=== PATIENT | female | born 1995 | race Two or more races ===

== ENCOUNTER 2024-06-01 17:39 | Emergency (ER) | payer BC, SELFPAY ==
[2024-06-01 18:41] VITALS: BP 124/80; PULSE 88; RESP 18; TEMP 36.6; O2SAT 99; BMI 27.4
--- NOTE | 2024-06-01 18:44 | PD.EDADULT ---
ED General RME/HPI General Chief complaint: General Adult/Misc Complain Stated complaint: SENT FROM OUTPT ULTRASOUND Time Seen by Provider: 06/01/24 18:10 Arrival date/time: 06/01/24 17:39 RME / HPI RME / HPI narrative: This section includes all my notes and documentations, including HPI, PE, and ED course. Camilo Saavedra MD HPI: 29-year-old female here requesting OB ultrasound report from today. The ultrasound was performed a couple hours ago across the street. She is currently . Today's GA is 7 weeks based on LMP 04/20/2024. She has slight cramping. No bleeding. She is concerned because she had ectopic in the past. No other complaints. ROS: All negative except as documented in HPI. Physical Exam: General: Alert and oriented. No acute distress when remaining still. Eyes: Conjunctivae and lids clear. ENT: No nasal congestion. Neck: Supple. Heart: RRR. Lungs: No respiratory distress. Good air movement. No rhonchi, wheezing, rales. Abdomen: Soft and nontender. Legs: No clubbing, cyanosis, edema. Skin: Warm and dry. Neuro: Alert and oriented X 3. I reviewed all diagnostic test results. My review of the OB ultrasound report is no ectopic . At this point, diagnoses include threatened miscarriage. Recommended expectant management. Based on my best medical judgment, made decision no further evaluation or treatment indicated at this time. Patient understands and agrees to the discharge instructions customized and printed, see below. Discharge Instructions from Dr. Saavedra: 1. After evaluation, there is no ectopic on ultrasound. But we can't see the baby, probably too early. 2. Today, your GA is 7 weeks based on LMP 04/20/2024. 3. Only time will determine whether you will have a successful or you will have a miscarriage. If you have a miscarriage, unfortunately we won?t be able to save the baby because it?s too early. Under 20 weeks, unfortunately we can?t help. 4. See a private doctor on 06/04/2024 for recheck and further care. Ask for repeat ultrasound in 1 to 2 weeks. 5. Seek immediate medical care for severe bleeding (soaking more than 3 pads per hour), intolerable pain, or with any concerns. Camilo Saavedra MD Related Data Previous Rx's ?Medication ?Instructions ?Recorded epinephrine 0.3 mg/0.3 mL 0.3 ml subcut .x1 PRN 11/08/20 injection, auto-injector (EpiPen hypersensitivity reaction #2 ea 2-Cosme) famotidine 40 mg tablet (Pepcid) 40 mg PO QDAY #3 tabs 11/08/20 prednisone 50 mg tablet 50 mg PO QDAY allergic reaction #3 11/08/20 tabs IBU 800 mg tablet (ibuprofen) 800 mg PO Q6H PRN pain #30 tabs 01/29/21 hydrocodone 5 mg-acetaminophen 325 1 tab PO Q8H PRN pain #10 tabs 01/29/21 mg tablet Allergies Allergy/AdvReac Type Severity Reaction Status Date / Time No Known Allergies Allergy Verified 06/01/24 17:41 Review of Systems Review of Systems Systems Reviewed: All systems reviewed, normal except as documented Past Medical History Past Medical History CARDIAC: Negative Congestive Heart Failure RESPIRATORY: Negative Chronic Obstructive Pulmonary Disease (COPD) GENITOURINARY: Negative Renal Disease ENDOCRINE: Negative Diabetes Mellitus Type 1 or Diabetes Mellitus Type 2 Social History SMOKING STATUS: Never smoker ED Exam Narrative Physical exam: As noted in HPI. Course Quality Measures none Vital Signs Vital signs: Vital Signs Temperature 98 F 06/01/24 18:41 Pulse Rate 88 06/01/24 18:41 Respiratory Rate 18 06/01/24 18:41 Blood Pressure 124/80 06/01/24 18:41 Pulse Oximetry (%) 99 06/01/24 18:41 Oxygen Delivery Method Room Air 06/01/24 18:41 [facility] Patient data External records reviewed:: [facility] previous records (Per chart review, patient was seen here on 01/29/21 for a left knee effusion; Patient had an outpatient US done today, currently pending being read by radiology.) Clinical information provided by:: patient Social determinants that could affect healthcare access:: none Patient has the following chronic illnesses:: none How is presenting disease/condition affected by chronic disease/condition?: no chronic disease Evaluation data The following diagnostics were reviewed and interpreted by me:: radiology exam(s) Lab and/or radiology exams considered but not ordered:: none Interpretation Summary: No ectopic Medications Medications considered but not ordered:: none Medication administrations:: None Consultations Consultation(s) initiated? (list below): No Diagnosis Differential Diagnosis ED Complaint MDM: IUP, ectopic, threatened AB, incomplete AB Most likely diagnosis given after review of the tests above:: Threatened AB Admission Indicated Admission indicated?: not indicated Explain why admission is indicated or not indicated:: Admission criteria not met. Admission Request Was there a request for admission?: No Disposition Plan Disposition Plan: Discharge Discharge Attestation Discharge Attestation: The patient and all family members were given an opportunity to ask questions and understood the discharge instructions. Discharge instructions specifically effects, indications for sooner follow up or return to the emergency department, and the expected course of current diagnosis. Patient condition: Stable Medical Decision Making Differential Diagnosis Differential Diagnosis: IUP, ectopic, threatened AB, incomplete AB Discharge Plan Plan Patient Disposition: HOME (Self Care) Prescriptions/Referrals Prescriptions/Med Rec: No Action famotidine [Pepcid] 40 mg tablet 40 mg PO QDAY Qty: 3 0RF prednisone 50 mg tablet 50 mg PO QDAY Qty: 3 0RF epinephrine [EpiPen 2-Cosme] 0.3 mg/0.3 mL auto-injector 0.3 ml subcut .x1 PRN (Reason: hypersensitivity reaction) Qty: 2 0RF ibuprofen [IBU] 800 mg tablet 800 mg PO Q6H PRN (Reason: pain) Qty: 30 0RF hydrocodone-acetaminophen 5-325 mg tablet 1 tab PO Q8H MDD 3 a day PRN (Reason: pain) Qty: 10 0RF Referrals: No Primary/Family,Physician [Primary Care Provider] - In 1 week Problem List Clinical Impression: Threatened miscarriage Patient/Caregiver Discharge Instructions Education Materials: ED Possible Miscarriage ... Additional Instructions: Discharge Instructions from Dr. Saavedra: 1.? ? ? After evaluation, there is no ectopic on ultrasound. But we can't see the baby, probably too early. 2.? ? ? Today, your GA is 7 weeks based on LMP 04/20/2024. 3.? ? ? Only time will determine whether you will have a successful or you will have a miscarriage.? If you have a miscarriage, unfortunately we won?t be able to save the baby because it?s too early.? Under 20 weeks, unfortunately we can?t help.?? 4.? ? ? See a private doctor on 06/04/2024 for recheck and further care. Ask for repeat ultrasound in 1 to 2 weeks. 5.? ? ? Seek immediate medical care for severe bleeding (soaking more than 3 pads per hour), intolerable pain, or with any concerns.? Print Language: Kosovan Stand Alone Forms: Susanna Award Info., Patient Portal Info Letter
--- NOTE | 2024-06-01 21:08 | PC.NURSE ---
PATIENT ELOPED THE ER DUE TO THE LONG WAIT TIME.
== END 2024-06-01 21:28 | disposition home or self-care (01) ==
PROVIDERS: Emergency Provider Emergency Medicine
DX: O20.0 Threatened abortion (principal); Z3A.01 Less than 8 weeks gestation of pregnancy
CPT/HCPCS: 99281

== ENCOUNTER → 2024-06-01 | Outpatient (CLI) | payer BC, SELFPAY ==
--- NOTE | 2024-06-01 16:53 | XR_ITS ---
Examination: OB Transvaginal ultrasound of the pelvis, complete Technique: Transvaginal sonographic images pelvis performed using bowen scale imaging Exam date and time: June 01, 2024 1700 hrs. Indications: Onset pelvic pain today, history left adnexal ectopic March 2023 Findings: Uterus 4.2 x 6.2 x 6.4 cm retroverted Intrauterine gestations 0.2 cm corresponds to 5 weeks 5 days gestational age No cardiac motion Right ovary 3.4 x 2.2 x 3.4 cm arterial flow, adjacent to the right ovary complex mass with fluid measuring 2.4 x 2.3 x 2.3 cm, differential would include ectopic Document ovary 3.0 x 1.8 x 1.6 cm arterial flow Fluid in the cul-de-sac Impression: Intrauterine gestation with pole but no cardiac activity Right ovarian complex mass with fluid measuring 2.4 x 2.3 x 2.3 cm, differential would include ectopic Short-term follow-up transvaginal pelvic sonography strongly recommended
--- NOTE | 2024-06-01 21:24 | PRELIM_ITS ---
Obstetric ultrasound (transvaginal). June 01, 2024 1700 hours Clinical history: state, hx of ectopic Comparison: NoneFindings: There is an intrauterine gestational sac with a sin gle fetus of mean gestational age 5 weeks and 5 days (CRL= 0.21 cm). The gestational sac appears to b e located in the right aspect of the uterine body of a subseptate or arcuate uterus. No cardiac activity is present at this time. The yolk sac is demonstrated. The uterus measures 8.2 x 6.2 x 6.4 cm and retroverted. The right ovary measures 3.3 x 2.2 x 3.3 cm. There is a 2.4 x 2.3 x 2.3 cm thick walled cystic lesion with peripheral vascularity in the right adnexa, likely a corpus luteum. The lef t ovary measures 3 x 1.8 x 1.5 cm and is unremarkable. Both ovaries demonstrate color flow and spectr al waveforms on Doppler evaluation. There is small free fluid in the pelvis. Impression: Intrauterine gestational sac with a single fetus of mean gestational age 5 weeks and 5 days. Gestational sac appe ars to be located in the right aspect of the uterine body of a subseptate or arcuate uterus. No cardiac activity identified at this time. This may be related to the early stage of gestation. Recom mend follow up for viability.Findings suggestive of corpus luteal cyst with rupture and small free fl uid in the pelvis.Discussion Details: Results Discussed With : Dr. Saavedra at 09:13 PM 06/01/2024 Repor t Electronically Signed By: Betty Juarez 06/01/2024 9:23:11 PM [EST]
== END | disposition home or self-care (01) ==
PROVIDERS: PCP Nurse Practitioner Family; Referring Provider Specialist; Visit Provider Nurse Practitioner Family
DX: O26.90 Pregnancy related conditions, unspecified, unspecified trimester (principal); Z3A.01 Less than 8 weeks gestation of pregnancy; Z87.59 Personal history of other complications of pregnancy, childbirth and the puerperium; Z34.90 Encounter for supervision of normal pregnancy, unspecified, unspecified trimester
CPT/HCPCS: 76817

== ENCOUNTER 2024-06-23 08:40 | Emergency (ER) | payer BC, SELFPAY ==
[2024-06-23 08:41] VITALS: BMI 26.6
[2024-06-23 08:55] VITALS: BP 113/79; PULSE 79; RESP 18; TEMP 36.7; O2SAT 100
--- NOTE | 2024-06-23 08:56 | XR_ITS ---
Examination: Complete OB ultrasound, less than 14 weeks, transabdominal Date and time of exam: June 23, 2024 0935 hours INDICATIONS: Onset vaginal bleeding today, history ectopic Technique: Obstetrical ultrasound images less than 14 weeks performed via transabdominal imaging Findings: A normal shaped single intrauterine gestation is present in the uterus. pole 2.4 cm corresponds to 9 weeks 1 day gestational age Cardiac motion 169 bpm Ultrasonographic survey of visible and placental structures unremarkable. Amniotic fluid volume appears appropriate for this estimated gestational age. Right ovary 3.0 x 2.1 x 2.8 cm arterial flow Left ovary 3.4 x 1.0 x 2.0 cm arterial flow. IMPRESSION: Viable intrauterine gestation 9 weeks 1 day
--- NOTE | 2024-06-23 09:11 | EDNOTE_ITS ---
<Statement entered by Myrtle Mathew MD - 06/25/24 15:28> As co-signing physician, I was present and available for consult prn. I concur with the plan and care as documented by the midlevel provider. ED OB Contraction Preg RMI/HPI General Chief complaint: Vaginal Bleeding Stated complaint: VAG BLEEDING AND ABOUT 9 WKS PREG. Time Seen by Provider: 06/23/24 08:46 Arrival date/time: 06/23/24 08:40 29-year-old female G2, presents to the emergency department complaints of vaginal bleeding after intercourse this morning patient reports no fever nausea or vomiting no chest pain shortness of breath no dysuria polyuria Limitations: no limitations Related Data Previous Rx's ?Medication ?Instructions ?Recorded epinephrine 0.3 mg/0.3 mL 0.3 ml subcut .x1 PRN 11/08/20 injection, auto-injector (EpiPen hypersensitivity reaction #2 ea 2-Cosme) famotidine 40 mg tablet (Pepcid) 40 mg PO QDAY #3 tabs 11/08/20 prednisone 50 mg tablet 50 mg PO QDAY allergic reaction #3 11/08/20 tabs IBU 800 mg tablet (ibuprofen) 800 mg PO Q6H PRN pain #30 tabs 01/29/21 hydrocodone 5 mg-acetaminophen 325 1 tab PO Q8H PRN pain #10 tabs 01/29/21 mg tablet Allergies Allergy/AdvReac Type Severity Reaction Status Date / Time No Known Allergies Allergy Verified 06/23/24 08:44 Review of Systems Review of Systems Systems Reviewed: All systems reviewed, normal except as documented Constitutional Constitutional: Reports system reviewed and no additional complaints, except as documented, Denies fever(s) and Denies headache(s) Eyes Eyes: Reports system reviewed and no additional complaints, except as documented and Denies blurry vision ENT Ears, Nose, Mouth, and Throat: Reports system reviewed and no additional complaints, except as documented, Denies headache(s), Denies nasal congestion and Denies nasal discharge Cardiovascular Cardiovascular: Reports system reviewed and no additional complaints, except as documented, Denies chest pain and Denies dyspnea Respiratory Respiratory: Reports system reviewed and no additional complaints, except as documented, Denies chest congestion, Denies cough and Denies dyspnea Gastrointestinal Gastrointestinal: Reports system reviewed and no additional complaints, except as documented and Denies abdominal pain Genitourinary Genitourinary: Reports system reviewed and no additional complaints, except as documented and Reports abnormal vaginal bleeding Integumentary/Breasts Skin/Breast: Reports system reviewed and no additional complaints, except as documented and Denies rash Neurologic Neurologic: Reports system reviewed and no additional complaints, except as documented, Reports as per HPI and Denies headache(s) Past Medical History Past Medical History CARDIAC: Negative Congestive Heart Failure RESPIRATORY: Negative Chronic Obstructive Pulmonary Disease (COPD) GENITOURINARY: Negative Renal Disease ENDOCRINE: Negative Diabetes Mellitus Type 1 or Diabetes Mellitus Type 2 Social History SMOKING STATUS: Never smoker ED Exam General Limitations: Present no limitations General appearance: Present alert and in no apparent distress Head Head exam: Present atraumatic Eye Eye exam: Present normal appearance, PERRL and EOMI ENT ENT exam: Present normal exam, normal oropharynx and mucous membranes moist Neck Neck exam: Present normal inspection, full ROM and trachea midline Chest Chest inspection: Present normal inspection and symmetric chest wall rise Respiratory Respiratory exam: Present normal lung sounds bilaterally Cardiovascular Cardiovascular exam: Present regular rate, normal rhythm and normal heart sounds Abdominal Exam Abdominal exam: Present soft and normal bowel sounds; Absent distention, tenderness, guarding, rebound or rigidity Extremities Exam Extremities exam: Present normal inspection and full ROM Back Exam Back exam: Present normal inspection and full ROM Neurological Exam Neurological exam: Present alert, oriented X3 and CN II-XII intact Psychiatric Psychiatric exam: Present normal affect and normal mood Skin Skin exam: Present warm, dry, intact and normal color Course Quality Measures none Orders Category Date Time Status US OB <= 14 weeks fetus Stat Exams 06/23/24 08:56 Completed ABO/RH Type Stat Lab 06/23/24 10:12 Completed Beta HCG,Quantitative Stat Lab 06/23/24 10:12 Completed CBC Stat Lab 06/23/24 10:12 Completed Comprehensive Metabolic Panel Stat Lab 06/23/24 10:12 Completed Vital Signs Vital signs: Vital Signs Temperature 98.0 F 06/23/24 08:55 Pulse Rate 79 06/23/24 08:55 Respiratory Rate 18 06/23/24 08:55 Blood Pressure 113/79 06/23/24 08:55 Pulse Oximetry (%) 100 06/23/24 08:55 Oxygen Delivery Method Room Air 06/23/24 08:55 O2 saturation 100% on room air within normal limits Vaginal Bleeding MDM Narrative MDM Narrative: 29-year-old female G2, presents to the emergency department complaints of vaginal bleeding after intercourse this morning patient reports no fever nausea or vomiting no chest pain shortness of breath no dysuria polyuria On exam patient does not appear ill or toxic patient does not appear in acute distress patient hemodynamically stable Lab work and ultrasound obtained ultrasound consistent with viable lab work reassuring Patient discharged home in no distress to follow-up with MECHANICAL SYSTEM TECHNICIAN in the next 24 to 48 hours and for any worsening symptoms to return to the ER immediately Patient data External records reviewed:: [facility] previous records Clinical information provided by:: patient Social determinants that could affect healthcare access:: none Patient has the following chronic illnesses:: None How is presenting disease/condition affected by chronic disease/condition?: no chronic disease Evaluation data The following diagnostics were reviewed and interpreted by me:: lab results and radiology exam(s) Lab and/or radiology exams considered but not ordered:: Labs and radiology obtained Interpretation Summary: Reviewed by me Medications / Prescriptions Medications or Prescriptions considered but not ordered:: Given Medication administrations:: Given Consultations Consultation(s) initiated? (list below): No Diagnosis Vaginal Bleeding Differential Diagnosis: missed , threatened and dysfunctional uterine bleeding Most likely diagnosis given after review of the tests above:: Threatened Admission Indicated Admission indicated?: not indicated Admission Request Was there a request for admission?: No Disposition Plan Disposition Plan: Discharge Discharge Attestation Discharge Attestation: The patient and all family members were given an opportunity to ask questions and understood the discharge instructions. Discharge instructions specifically effects, indications for sooner follow up or return to the emergency department, and the expected course of current diagnosis. Patient condition: Stable Discharge Plan Plan Patient Disposition: HOME (Self Care) Disposition Comment: Stable Prescriptions/Referrals Prescriptions/Med Rec: No Action famotidine [Pepcid] 40 mg tablet 40 mg PO QDAY Qty: 3 0RF prednisone 50 mg tablet 50 mg PO QDAY Qty: 3 0RF epinephrine [EpiPen 2-Cosme] 0.3 mg/0.3 mL auto-injector 0.3 ml subcut .x1 PRN (Reason: hypersensitivity reaction) Qty: 2 0RF ibuprofen [IBU] 800 mg tablet 800 mg PO Q6H PRN (Reason: pain) Qty: 30 0RF hydrocodone-acetaminophen 5-325 mg tablet 1 tab PO Q8H MDD 3 a day PRN (Reason: pain) Qty: 10 0RF Referrals: No Primary/Family,Physician [Primary Care Provider] - 06/24/24 Problem List Clinical Impression: Bleeding in early Patient/Caregiver Discharge Instructions Education Materials: Bleeding During Early Additional Instructions: Please follow-up with MECHANICAL SYSTEM TECHNICIAN as discussed for worsening symptoms return immediately Print Language: German Stand Alone Forms: Susanna Award Info., Work/School Release, Patient Portal Info Letter PA/BRINE MIXER OPERATOR Supervising Physician PA/BRINE MIXER OPERATOR Supervising Physician: Dr. Mathew
[2024-06-23 10:24] LABS: Basophils % (Auto) 1 % (0-2.5); Eosinophils % (Auto) 1 % (0-10); Hematocrit 38.2 % (36.0-46.0); Hemoglobin 12.8 g/dL (12.0-16.0); Immature Granulocytes % (Auto) 0 % (0-0); Immature Granulocytes Auto 0.01 Thou/mm3 (0.00-0.00); Lymphocytes # (Auto) 1.6 Thou/mm3 (1.0-4.8); Lymphocytes % (Auto) 19 % (10-50); Mean Corpuscular HGB Conc 33.5 g/dl (31.0-37.0); Mean Corpuscular Hemoglobin 28.5 pg (25.0-35.0); Mean Corpuscular Volume 85 fL (80-100); Monocytes # (Auto) 0.5 Thou/mm3 (0.0-0.8); Monocytes % (Auto) 6 % (0-12); Neutrophils # (Auto) 6.2 Thou/mm3 (1.8-7.7); Neutrophils % (Auto) 74 % (37-80); Nucleated Red Blood Cell % 0 /100 WBC (0); Platelet Count 284 Thou/mm3 (140-440); RDW Standard Deviation 39.8 fL (36.4-46.3); Red Blood Count 4.49 Miln/mm3 (4.00-5.20); White Blood Count 8.4 Thou/mm3 (3.6-11.0)
[2024-06-23 11:09] LABS: Alanine Aminotransferase < 7 U/L (10-49); Albumin, Serum 4.7 gm/dL (3.5-5.0); Albumin/Globulin Ratio 1.7 (1.2-2.2); Alkaline Phosphatase 50 U/L (46-116); Anion Gap 8 (7-16); Aspartate Amino Transferase < 10 U/L (0-34); BUN/Creatinine Ratio 10 Ratio (12-20); Bilirubin,Total 0.3 mg/dL (0.3-1.2); Blood Urea Nitrogen 5 mg/dL (9-23); Calcium 9.5 mg/dL (8.3-10.6); Calcium (Corrected) 9.5 mg/dL (8.5-10.1); Carbon Dioxide 24.4 mMol/L (20.0-31.0); Chloride 103 mMol/L (98-107); Creatinine (Component) 0.5 mg/dL (0.6-1.3); Estimated Creatinine Clearance 165.7 mL/min (>60); Globulin 2.8 gm/dL (2.3-3.5); Glucose 87 mg/dL (74-106); Osmolality,Calculated 266 (275-295); Sodium 135 mMol/L (136-145); Total Protein 7.5 gm/dL (5.7-8.2); eGFR > 60 See Note
[2024-06-23 11:21] LABS: Beta HCG,Quantitative 96045 mIU/mL (<5.0)
== END 2024-06-23 12:00 | disposition home or self-care (01) ==
PROVIDERS: Nurse Practitioner Primary Care; Emergency Provider Emergency Medicine
DX: O20.0 Threatened abortion (principal); Z3A.09 9 weeks gestation of pregnancy
CPT/HCPCS: 36415; 76801; 80053; 84702; 85025; 86900; 86901; 99284

== ENCOUNTER → 2024-08-06 | Outpatient (CLI) | payer BC, SELFPAY ==
--- NOTE | 2024-08-06 11:02 | XR_ITS ---
Examination: PA chest lateral 2 views Technique: Upright PA lateral chest 2 views Exam date and time: August 06, 2024 1112 hrs. Indications: Positive TB skin test this week Findings: Normal heart size Lungs are clear. The osseous structures are intact Impression: No active disease No radiographic findings of tuberculosis
== END | disposition home or self-care (01) ==
PROVIDERS: Referring Provider Specialist; Visit Provider Specialist
DX: R76.11 Nonspecific reaction to tuberculin skin test without active tuberculosis (principal); Z34.81 Encounter for supervision of other normal pregnancy, first trimester
CPT/HCPCS: 71046

== ENCOUNTER 2025-01-19 02:36 | Observation (INO) | payer BC, SELFPAY ==
[2025-01-19] VITALS (12 sets, daily range): BP systolic 101–137; BP diastolic 53–85; PULSE 65–84; RESP 18–98; TEMP 36.6–36.8; O2SAT 97–99; BMI 31.1
--- NOTE | 2025-01-19 03:29 | XR_ITS ---
Examination: Complete OB ultrasound greater than 14 weeks Date and time of exam: January 19, 2025, 0337 hours INDICATIONS: Labor evaluation, pelvic contractions beginning 2 days ago, history when ectopic Findings: Viable intrauterine single fetus with single amniotic sac presentation cephalic Cardiac motion 125 BPM Placenta fundal grade 2 Umbilical cord insertion seen. Amniotic fluid index 7.9 cm. Cervix 3.5 cm Ovaries obscured by bowel gas. Composite estimated gestational age based on BPD, head circumference, abdominal circumference, femur length is 40 weeks 1 day Estimated weight 4087.7 g. Survey of intracranial anatomy, spinal anatomy, abdominal anatomy, four-chamber heart performed with no abnormalities identified. Impression: Viable intrauterine gestation cephalic presentation Estimated weight 4087.7 g.
[2025-01-19 03:32] LABS: Basophils # (Auto) 0.0 Thou/mm3 (0.0-0.2); Basophils % (Auto) 0 % (0-2.5); Eosinophils # (Auto) 0.1 Thou/mm3 (0.0-0.5); Eosinophils % (Auto) 1 % (0-10); Hematocrit 39.8 % (36.0-46.0); Hemoglobin 13.4 g/dL (12.0-16.0); Immature Granulocytes Auto 0.05 Thou/mm3 (0.00-0.00); Lymphocytes # (Auto) 2.6 Thou/mm3 (1.0-4.8); Lymphocytes % (Auto) 24 % (10-50); Mean Corpuscular HGB Conc 33.7 g/dl (31.0-37.0); Mean Corpuscular Hemoglobin 29.0 pg (25.0-35.0); Mean Corpuscular Volume 86 fL (80-100); Monocytes # (Auto) 0.7 Thou/mm3 (0.0-0.8); Monocytes % (Auto) 7 % (0-12); Neutrophils # (Auto) 7.3 Thou/mm3 (1.8-7.7); Neutrophils % (Auto) 68 % (37-80); Nucleated Red Blood Cell # 0.00 Thou/mm3 (0.00-0.00); Nucleated Red Blood Cell % 0 /100 WBC (0); Platelet Count 221 Thou/mm3 (140-440); RDW Standard Deviation 40.2 fL (36.4-46.3); Red Blood Count 4.62 Miln/mm3 (4.00-5.20); White Blood Count 10.8 Thou/mm3 (3.6-11.0)
[2025-01-19 04:05] LABS: Syphilis Nonreactive (Nonreactive)
[2025-01-19] MEDS: RINGERS LACTATED 1000 ML 1,000 ML 100 ML IV (04:14)
--- NOTE | 2025-01-19 04:50 | PRELIM_ITS ---
Obstetric ultrasound with Doppler. January 19, 2025 at 0337 hours Clinical history: Contractions. Comparison: No prior study is available for comparison. Findings: There is a gravid uterus with a live fetus in cephalic presentation of mean gestational age 40 weeks and 1 days (by biometry). cardiac activity is present at a heart rate of 125 beats per minute. The placenta is fundal in location, maturity grade 2. There is no evidence of placenta previa or retroplacental hemorrhage. Amniotic fluid is adequate (RADHA = 7.9 cm). Estimated weight is 4088 grams+/- 605 grams. The cervix measures 3.5 cm, close. The ovaries were not visualized. No abnormalities by Doppler. Impression: Gravid uterus with a single live fetus in cephalic presentation of mean gestational age 40 weeks 1 days. Report Electronically Signed By: Bebeto Handley 01/19/2025 4:49:48 AM [EST]
--- NOTE | 2025-01-19 07:13 | PC.NURSE ---
[id number] RN evaluated and agrees with RN Sylvia charting
--- NOTE | 2025-01-19 08:39 | PD.LDHP ---
Documentation for date of: 01/19/25 OB Labor/Induct. HPI History of Present Illness Chief complaint: labor : 2 Para: 0 Term pregnancies: 0 pregnancies: 0 Living children: 0 History of Abortions: Spontaneous and Elective: 1 History of Vaginal deliveries: 0 History of sections: No History of : No Date of last menstrual period: 04/19/24 ADRIANO: 01/24/25 Gestational Age (weeks): 39 Gestational Age (days): 2 Gestational age based on last menstrual period: 39 History of present illness: This is a 29-year-old 2 para 0 admit to labor and delivery contractions since 1:30 in the morning. Patient is been followed by Dr Lynn's office. She had early care. Last period April 19, 2024. Estimated due date January 24, 2025. Patient denies social habits. Denies surgery. Denies chronic illness. She denies that she has had problems with . She is O+, antibody screen negative, RPR nonreactive, rubella immune, hepatitis B negative, hepatitis C negative, HIV negative, GC and Chlamydia were negative. Patient had a normal 1 hour GTT and her GBS is negative History of Present Dating criteria: LMP confirmed by 1st trimester US Adequate Care: Yes Ultrasounds: normal 1st trimester US and normal mid trimester US Obstetrical complications: none Medical complications: none Labs Labs: Positive: Rubella Titre, Negative: RPR, Hepatitis B, HIV, Chlamydia, Gonorrhea and Group Beta Strep and Unknown: Herpes Type 1, Herpes Type 2 and Covid-19 Review of Systems Review of Systems Systems Reviewed: All systems reviewed, normal except as documented Past Medical History Surgical History SURGICAL: Negative Section Meds Home Medications and Allergies Home Medications ?Medication ?Instructions ?Recorded ?Confirmed ?Type vits no.126-ferrous fum 1 tab PO .q day 01/19/25 01/19/25 History 28 mg iron-folic acid 800 mcg tablet (Classic ) Allergies Allergy/AdvReac Type Severity Reaction Status Date / Time No Known Allergies Allergy Verified 01/19/25 03:00 OB Exam Physical Exam Vital signs: Temp Pulse Resp BP Pulse Ox 97.8 F 65 18 118/60 99 01/19/25 02:47 01/19/25 06:45 01/19/25 02:47 01/19/25 06:45 01/19/25 03:01 Narrative: Normal heart rate and rhythm. Lungs clear no wheezes. Gravid abdomen. Gynecoid pelvis. Patient had ultrasound on admission that showed vertex presentation. EFW was 4100 g. By Kendell's baby feels about 8 pounds. heart rate category 1 with accelerations and moderate variability contractions are regular. Bag carlton intact Detailed Labor and Delivery Exam Dilation (cm): 3 Effacement (%): 60 Cervix position: posterior station: -3 Consistency: soft Presentation: Vertex Cervical ripeness score: 7 Membranes: intact monitor accelerations: 15x15 monitor decelerations: None correction variability: Moderate (11-25) Contraction frequency (min): irregular Contraction duration (sec): 30 Tachysystole: No Contraction intensity: Moderate OB Results Labs 01/19/25 03:10 Labs: Short CBC 01/19/25 Range/Units 03:10 WBC 10.8 (3.6-11.0) Thou/mm3 Hgb 13.4 (12.0-16.0) g/dL Hct 39.8 (36.0-46.0) % Plt Count 221 (140-440) Thou/mm3 OB Assessment & Plan Assessment and Plan (1) Normal labor and delivery: Status: Acute Additional Plan Induction method: none Plan: augmentation, anticipate NVD and consult MD gonzalez
--- NOTE | 2025-01-19 12:03 | ESDS_ITS ---
DS: Providers Provider Date of admission: 01/19/25 03:10 Primary care physician: Physician No Primary/Family Admitting Provider: Verona Clinton MD ([facility]) Attending Provider on Admission: Indiana Santana CNM Attending Provider on DC: Indiana Santana CNM Discharging Provider: Indiana Santana CNM Summary/Hosp Course Brief History: This is a 29-year-old 2 para 0 admit to labor and delivery contractions since 1:30 in the morning. Patient is been followed by Dr Lynn's office. She had early care. Last period April 19, 2024. Estimated due date January 24, 2025. Patient denies social habits. Denies surgery. Denies chronic illness. She denies that she has had problems with . She is O+, antibody screen negative, RPR nonreactive, rubella immune, hepatitis B negative, hepatitis C negative, HIV negative, GC and Chlamydia were negative. Patient had a normal 1 hour GTT and her GBS is negative Peripartum Data Procedures: NST/BPP reactive. no change in exam. discharged home with instruction, undeliveded complications: none Status at Discharge Cognitive/behavioral status at discharge: alert, oriented Functional status at discharge: independent ambulation Overall status at discharge: Undelivered Time Spent with Patient Time attestation: Total time spent providing and/or coordinating discharge services: Exam Vital Signs Temp Pulse Resp BP Pulse Ox 98.3 F 72 18 101/53 L 99 01/19/25 07:00 01/19/25 11:30 01/19/25 02:47 01/19/25 11:30 01/19/25 03:01 Discharge Plan Plan Patient Disposition: HOME (Self Care) Patient condition on transfer: Stable Prescriptions/Referrals Prescriptions/Med Rec: No Action famotidine [Pepcid] 40 mg tablet 40 mg PO QDAY Qty: 3 0RF prednisone 50 mg tablet 50 mg PO QDAY Qty: 3 0RF epinephrine [EpiPen 2-Cosme] 0.3 mg/0.3 mL auto-injector 0.3 ml subcut .x1 PRN (Reason: hypersensitivity reaction) Qty: 2 0RF ibuprofen [IBU] 800 mg tablet 800 mg PO Q6H PRN (Reason: pain) Qty: 30 0RF hydrocodone-acetaminophen 5-325 mg tablet 1 tab PO Q8H MDD 3 a day PRN (Reason: pain) Qty: 10 0RF Classic 28 mg iron- 800 mcg tablet 1 tab PO .q day Referrals: No Primary/Family,Physician [Primary Care Provider] - Patient/Caregiver Discharge Instructions Meds to Beds: No Discharge Activity: resume usual activities Print Language: Kinyarwanda Activity Restrictions/Additional Instructions: No cervical change for 12 hours. Patient remains 3 cm, posterior, 60% effaced - 3. Bag water intact. RADHA was 7.1. Baby is vertex presentation. Patient to keep OB appointment on . Reviewed labor precautions and danger signs symptoms. kick count twice a day. Return to labor and delivery if leak ing fluid. If the baby does not move 10 times in 2 hours. If contractions get stronger and harder. Patient scheduled for induction January 23, 2025 Stand Alone Forms: Susanna Award Info., Patient Portal Info Letter Discharge Order Discharge Orders: Discharge (Routine); Ordered 01/19/25 Ordered By: Indiana Santana Planned Discharge Date 01/19/25
--- NOTE | 2025-01-19 12:07 | PD.LDPN ---
Documentation for date of: 01/19/25 OB Labor Progress Note Pain Control Pain control: tolerating well Pelvic Exam Dilation (cm): 3 Effacement (%): 60/posterior. soft/vertex station: -3 Amniotic membrane status: Intact Comments: No cervical change since admission. Contractions have more than every more than every 5 minutes and irregular. Mild to palpation. No bleeding or leaking. Patient is discharged home with instructions to return to OB January 21 as scheduled. Induction scheduled for 23 January. Labor precautions and kick count twice a day were discussed. And ER precautions as well. Contractions Monitor mode: External Contraction frequency: rare, irregular Contraction intensity: Mild Status status: Category l Comments: Discharge home undelivered Assessment and Plan Assessment: other (not in labor) CNM Management MD Consulted (describe details below): Yes Details of MD consultation: Discharge home undelivered. DC IV. Schedule induction for January 23. And keep scheduled OB appointment
== END 2025-01-19 12:15 | disposition home or self-care (01) ==
PROVIDERS: Admitting Provider Obstetrics & Gynecology; Visit Provider Advanced Practice Midwife
DX: O47.1 False labor at or after 37 completed weeks of gestation (principal); Z3A.40 40 weeks gestation of pregnancy
CPT/HCPCS: 36415; 59899; 76805; 85025; 86780; 86850; 86900; 86901; G0378; J7120

== ENCOUNTER 2025-01-25 17:40 | Inpatient (IN) | payer BC, SELFPAY ==
[2025-01-25] VITALS (12 sets, daily range): BP systolic 122–145; BP diastolic 68–90; PULSE 60–120; RESP 18–98; TEMP 36.9–37; O2SAT 98; BMI 32.2; BMI 33.3
[2025-01-25 18:46] LABS: Basophils # (Auto) 0.0 Thou/mm3 (0.0-0.2); Basophils % (Auto) 0 % (0-2.5); Eosinophils # (Auto) 0.0 Thou/mm3 (0.0-0.5); Eosinophils % (Auto) 0 % (0-10); Hematocrit 38.4 % (36.0-46.0); Hemoglobin 13.2 g/dL (12.0-16.0); Immature Granulocytes Auto 0.04 Thou/mm3 (0.00-0.00); Lymphocytes # (Auto) 1.7 Thou/mm3 (1.0-4.8); Lymphocytes % (Auto) 12 % (10-50); Mean Corpuscular HGB Conc 34.4 g/dl (31.0-37.0); Mean Corpuscular Hemoglobin 29.5 pg (25.0-35.0); Mean Corpuscular Volume 86 fL (80-100); Monocytes # (Auto) 0.7 Thou/mm3 (0.0-0.8); Monocytes % (Auto) 5 % (0-12); Neutrophils # (Auto) 12.1 Thou/mm3 (1.8-7.7); Neutrophils % (Auto) 83 % (37-80); Nucleated Red Blood Cell # 0.00 Thou/mm3 (0.00-0.00); Nucleated Red Blood Cell % 0 /100 WBC (0); Platelet Count 205 Thou/mm3 (140-440); RDW Standard Deviation 40.5 fL (36.4-46.3); Red Blood Count 4.47 Miln/mm3 (4.00-5.20); White Blood Count 14.6 Thou/mm3 (3.6-11.0)
[2025-01-25] MEDS: RINGERS LACTATED 1000 ML 1,000 ML 100 ML IV ×2 (19:06→23:01)
[2025-01-25 19:34] LABS: Syphilis Nonreactive (Nonreactive)
--- NOTE | 2025-01-25 20:24 | PD.LDHP ---
Documentation for date of: 01/25/25 OB Labor/Induct. HPI History of Present Illness Chief complaint: painful ctx : 2 Para: 0 Term pregnancies: 0 pregnancies: 0 Living children: 0 History of Abortions: Spontaneous and Elective: 1 History of Vaginal deliveries: 0 History of sections: No History of : No ADRIANO: 01/24/25 Gestational Age (weeks): 40 Gestational Age (days): 1 History of present illness: Patient presents for regular, painful ctx. No LOF. No vaginal bleeding. Normal movement. No fevers/chills. History of Present Dating criteria: LMP confirmed by 1st trimester US Adequate Care: Yes Abnormal ultrasound findings: Bilateral renal pyelectasis that resolved on subsequent ultrasound Narrative: : left ectopic treated with left salpingectomy Labs Maternal Blood Type: O Pos Labs: Positive: Rubella Titre, Negative: RPR, Hepatitis B, HIV, Chlamydia, Gonorrhea and Group Beta Strep and Unknown: Herpes Type 1, Herpes Type 2 and Covid-19 Narrative: Positive TB testing, negative CXR 1hr glucola 106 NIPT negative XY Negative MSAFP HgbA1c 5.2 Review of Systems Review of Systems Narrative Review of Systems: Review of Systems Systems Reviewed: All systems reviewed, normal except as documented Constitutional Constitutional: Denies body ache(s), Denies chills, Denies fever(s) and Denies headache(s) ENT Ears, Nose, Mouth, and Throat: Denies headache(s) and Denies vertigo Cardiovascular Cardiovascular: Denies chest pain, Denies palpitations, Denies dyspnea and Denies syncope Respiratory Respiratory: Denies cough, Denies dyspnea Gastrointestinal Gastrointestinal: Denies nausea and Denies vomiting Neurologic Neurologic: Denies convulsions, Denies headache(s), Denies other visual disturbances, Denies syncope and Denies vertigo Past Medical History Family History OTHER FAMILY HX: non-contributory Surgical History SURGICAL: Negative Section OTHER SURGICAL HX: left salpingectomy to treat ectopic Social History SOCIAL: No tobacco/ETOH/illicit drug use. , good social support. Past Medical History Comments PMH COMMENT: +TB test with negative CXR Starting BMI 29 Anxiety, no meds Meds Home Medications and Allergies Home Medications ?Medication ?Instructions ?Recorded ?Confirmed ?Type vits no.126-ferrous fum 1 tab PO .q day 08/12/25 08/12/25 History 28 mg iron-folic acid 800 mcg tablet (Classic ) Allergies Allergy/AdvReac Type Severity Reaction Status Date / Time No Known Allergies Allergy Verified 01/19/25 03:00 OB Exam Physical Exam Vital signs: Temp Pulse Resp BP Pulse Ox 98.5 F 77 20 122/68 98 01/25/25 18:01 01/25/25 20:02 01/25/25 18:01 01/25/25 20:02 01/25/25 18:07 Narrative: General: well developed, well nourished, no acute distress, conversant Cardiac: normal heart rate Lungs: breathing without distress Abdomen: soft, gravid, non-tender, no rebound or guarding Extremities: no pain with palpation of calves Detailed Labor and Delivery Exam Dilation (cm): 4 Effacement (%): 80 Cervix position: mid station: -2 Consistency: soft Presentation: Vertex Membranes: intact Baseline heart rate: 130 monitor accelerations: 15x15 monitor decelerations: None assistant terminal manager variability: Moderate (11-25) Contraction frequency (min): q3-5min OB Results Labs 01/25/25 18:20 Labs: Short CBC 01/25/25 Range/Units 18:20 WBC 14.6 H (3.6-11.0) Thou/mm3 Hgb 13.2 (12.0-16.0) g/dL Hct 38.4 (36.0-46.0) % Plt Count 205 (140-440) Thou/mm3 OB Assessment & Plan Assessment and Plan (1) Active labor at term: Status: Acute Assessment and plan: Tayler is a 29yo with SIUP at 40&1wk presenting in active labor. Regular/painful contractions, SCE: 4/80/-2. Vitals wnl, benign exam. Reassuring assessment. PMhx/ significant for: -PNC with Dr. Lynn's office -Hx of left ectopic treated with salpingectomy -Positive TB test with negative CXR Plan: -Admit to L&D -Establish IV, routine labs -CEFM -Clear liquid diet -Lube Worker/consent re: -GBS status: negative -Anticipate -Safe to proceed (2) 40 weeks gestation of : Status: Acute
--- NOTE | 2025-01-25 22:08 | PD.LDPN ---
Documentation for date of: 01/25/25 OB Labor Progress Note Pelvic Exam Dilation (cm): 6 Effacement (%): 90 station: -2 Amniotic membrane status: Ruptured Contractions Monitor mode: External Contraction frequency: 5 Contraction intensity: Mild Status status: Category l Assessment and Plan Comments: Intrapartum Note Patient doing well, breathing through ctx. Declines epidural currently. Had SROM, clear, after admission. Vitals wnl, afebrile Cat I FHRT SCE: /-2 Will continue to closely monitor CEFM Safe to proceed Christa Jackson MD
[2025-01-25] MEDS: fentaNYL CIT INJ 50 mCg/ML AMP 2ML 100 MCG IVP (22:58)
[2025-01-26] VITALS (164 sets, daily range): BP systolic 107–189; BP diastolic 53–130; PULSE 51–160; RESP 16–20; TEMP 2.7–37.1; O2SAT 71–100
[2025-01-26] MEDS: RINGERS LACTATED 1000 ML 1,000 ML 100 ML IV (03:10)
--- NOTE | 2025-01-26 07:24 | PD.LDPN ---
Documentation for date of: 01/26/25 OB Labor Progress Note Pelvic Exam Dilation (cm): 10 Effacement (%): 100 station: +2 Amniotic membrane status: Ruptured Contractions Monitor mode: External Contraction frequency: 3-4 Contraction pattern: Coupling Contraction intensity: Strong Status status: Category l Assessment and Plan Comments: Intrapartum Note Comfortable with epidural. Last night SCE documented 8cm, but then re-check by another RN was 6cm. Patient then received epidural and after being able to relax fully, is now C/C/+2. Practice pushes reveal pushing well, so will continue Anticipate soon Cat I FHRT Vitals wnl, afebrile Safe to proceed Christa Jackson MD
[2025-01-26] MEDS: MINERAL OIL 30 ML UDC TOP (08:12)
[2025-01-26] MEDS: OXYTOCIN in NS 20 units 20 UNIT/1,000 ML BAG 125 UNIT IV (09:08)
--- NOTE | 2025-01-26 09:25 | OBDSUM_ITS ---
Data (Tang) Data Hx Section: No : 2 Term: 0 : 0 Livin Abortions: Spontaneous & Theraputic: 1 Delivery Data (Tang) Labor Data Initiation of labor: Spontaneous Induction/Augmentation Agent: None ROM date: 01/25/25 ROM time: 20:05 Amniotic membrane rupture type: Spontaneous Amniotic fluid description: Clear Delivery Data Onset of labor date: 01/25/25 Onset of labor time: 18:00 Complete dilation date: 01/26/25 Complete dilation time: 07:15 delivery date: 01/26/25 delivery time: 09:00 Placenta delivery date: 01/26/25 Placenta delivery time: 09:07 Stage 1 total time: Labor - Stage 1 Duration 13 hours and 15 minutes Delivered by: denys Delivery nurse: Jeramy enriquez [employer] Community Relations Coordinator at delivery: No Support person(s) at delivery: FOB Other staff at delivery: Ericka crabtree/ Jose Francisco Barbour Delivery Method Delivery method: Normal Vaginal Delivery Presentation: Vertex Anesthesia Type Anesthesia Type: Epidural Placenta Placenta delivery description: Spontaneous Cord blood sent to lab: Yes cord blood collection: Cord Blood Type Episiotomy Episiotomy description: None EBL Estimated blood loss (ml): 150 Umbilical Cord cord description: 3 Vessels Additional Procedures Tayler is a 29yo [id number] s/p uncomplicated at 40&1wk after presenting in active labor, delivering at 0900 on 01/26/2025. On presentation, SCE was 4/70/-2. She progressed to C/C/+2 at which point she began pushing. She received an epidural. With good maternal pushing efforts, 's head delivered OA and restituted GAMAL. Right anterior shoulder delivered easily followed by posterior shoulder and corpus. had spontaneous cry and was vigorous. Apgars 9/9. Infant placed on maternal abdomen where nose/mouth were suctioned and dried/stimulated. After approximately 3 minutes, cord was clamped x2 and cut by FOB. Cord blood collected for typing. With fundal massage and cord traction, placenta delivered spontaneously and intact with 3 vessel centrally inserted cord. Bimanual massage performed and IV pitocin given per protocol with fundus then firm at u-2cm and hemostasis noted. Inspection of perineum and vagina revealed right labial laceration and a 1st degree midline perineal laceration which were repaired in routine fashion with 3-0 vicryl- total reapproximation and hemostasis achieved. All counts correct x2. Mom and were doing well when I left the room. Christa Jackson MD Complications Complications: none [place] Data (Tang) Data order: 1 's gender: Male Identification band number: [id number] weight (gms): 3730 g Weight (pounds): 8 lbs and 3.6 ozs length: 54.61 cm 1 minute: 9 5 minutes: 9
[2025-01-26] MEDS: IBUPROFEN TAB 400 MG TABLET 800 MG PO ×2 (09:39→16:15)
[2025-01-26] MEDS: BENZO/LANO/ALOE (Dermoplast) 60 GM CAN 1 SPRAY TOP (09:41)
[2025-01-26 15:46] LABS: Basophils # (Auto) 0.0 Thou/mm3 (0.0-0.2); Basophils % (Auto) 0 % (0-2.5); Eosinophils # (Auto) 0.0 Thou/mm3 (0.0-0.5); Eosinophils % (Auto) 0 % (0-10); Hematocrit 34.7 % (36.0-46.0); Hemoglobin 12.0 g/dL (12.0-16.0); Immature Granulocytes Auto 0.09 Thou/mm3 (0.00-0.00); Lymphocytes # (Auto) 2.0 Thou/mm3 (1.0-4.8); Lymphocytes % (Auto) 9 % (10-50); Mean Corpuscular HGB Conc 34.6 g/dl (31.0-37.0); Mean Corpuscular Hemoglobin 30.2 pg (25.0-35.0); Mean Corpuscular Volume 87 fL (80-100); Monocytes # (Auto) 1.8 Thou/mm3 (0.0-0.8); Monocytes % (Auto) 8 % (0-12); Neutrophils # (Auto) 17.7 Thou/mm3 (1.8-7.7); Neutrophils % (Auto) 82 % (37-80); Nucleated Red Blood Cell # 0.00 Thou/mm3 (0.00-0.00); Nucleated Red Blood Cell % 0 /100 WBC (0); Platelet Count 178 Thou/mm3 (140-440); RDW Standard Deviation 41.6 fL (36.4-46.3); Red Blood Count 3.98 Miln/mm3 (4.00-5.20); White Blood Count 21.6 Thou/mm3 (3.6-11.0)
[2025-01-26] MEDS: DOCUSATE SOD 100 MG CAPSULE PO (21:22)
[2025-01-26] MEDS: ACETAMINOPHEN 325 MG TABLET 650 MG PO (23:59)
[2025-01-27 03:20] VITALS: BP 105/67; PULSE 75; RESP 16; TEMP 36.6; O2SAT 97
[2025-01-27 08:15] VITALS: BP 106/68; PULSE 70; RESP 20; TEMP 36.7; O2SAT 98
--- NOTE | 2025-01-27 08:56 | ESDS_ITS ---
DS: Providers Provider Date of admission: 01/25/25 18:15 Primary care physician: Physician No Primary/Family Admitting Provider: Christa Jackson MD Attending Provider on Admission: Christa Jackson MD Consults: 01/26/25 09:21 Referral Routine Comment: 01/27/25 08:41 Referral Michelle Routine Comment: PARENTS REQUESTING A BABY BLESSING Attending Provider on DC: Christa Jackson MD Discharging Provider: Christa Jackson MD DS: Diagnosis Discharge Diagnosis (1) care and examination immediately after delivery: Status: Acute (2) 40 weeks gestation of : Status: Acute Problem List Completed Was Problem List Reviewed/Reconciled?: Yes Summary/Hosp Course Brief History: Patient presents for regular, painful ctx. No LOF. No vaginal bleeding. Normal movement. No fevers/chills. Tayler is a 29yo [id number] s/p uncomplicated at 40&1wk after presenting in labor, delivering at 0900 on 01/26/25. She has had an uncomplicated course, meeting all milestones and feels ready for discharge home. She is ambulating without lightheadedness, tolerating regular diet no n/v, spont aneously voiding without issue. She has no chest pain or shortness of breath. No fevers or chills. Minimal, appropriate discomfort. Vitals normal, benign exam. Hemodynamically stable with no evidence of infection. PP Hgb 12 from 13.2. Peripartum Data Delivery Method: Normal Vaginal Delivery Episiotomy Description: None Status at Discharge Functional status at discharge: independent ambulation Overall status at discharge: patient is back to baseline Time Spent with Patient Time attestation: Total time spent providing and/or coordinating discharge services: Exam Vital Signs Temp Pulse Resp BP Pulse Ox O2 Del Method 97.8 F 75 16 105/67 97 Room Air 01/27/25 03:20 01/27/25 03:20 01/27/25 03:20 01/27/25 03:20 01/27/25 03:20 01/27/25 03:20 Narrative Exam General: well developed, well nourished, no acute distress, conversant Cardiac: normal heart rate Lungs: breathing without distress Abdomen: soft, post-gravid, non-tender, no rebound or guarding, Fundus firm at u-3cm. Extremities: no pain with palpation of calves, trace edema of BLE Discharge Plan Plan Patient Disposition: HOME (Self Care) Patient condition on transfer: Stable Prescriptions/Referrals Prescriptions/Med Rec: New docusate sodium 100 mg Capsule 100 mg PO BID 10 Days Qty: 20 0RF ibuprofen 800 mg tablet 800 mg PO Q8H PRN (Reason: See Comments) 10 Days Qty: 20 0RF Continued famotidine [Pepcid] 40 mg tablet 40 mg PO QDAY Qty: 3 0RF epinephrine [EpiPen 2-Cosme] 0.3 mg/0.3 mL auto-injector 0.3 ml subcut .x1 PRN (Reason: hypersensitivity reaction) Qty: 2 0RF Classic 28 mg iron- 800 mcg tablet 1 tab PO .q day Discontinued ibuprofen [IBU] 800 mg tablet 800 mg PO Q6H PRN (Reason: pain) Qty: 30 0RF hydrocodone-acetaminophen 5-325 mg tablet 1 tab PO Q8H MDD 3 a day PRN (Reason: pain) Qty: 10 0RF No Action prednisone 50 mg tablet 50 mg PO QDAY Qty: 3 0RF Referrals: No Primary/Family,Physician [Primary Care Provider] - Patient/Caregiver Discharge Instructions Discharge Activity: activity as tolerated and other Other Discharge Activity Instructions:: vaginal rest and no heavy lifting for 6 weeks Other Discharge Diet Instructions: regular Education Materials: After a Vaginal Print Language: Kyrgyz Activity Restrictions/Additional Instructions: follow up with Dr. Lynn's office in 2-4 weeks, call office for appointment Stand Alone Forms: Susanna Award Info., Patient Portal Info Letter, Work/Release Restrictions Discharge Order Discharge Orders: Discharge (Routine); Ordered 01/27/25 Ordered By: Christa Jackson Planned Discharge Date 01/27/25
[2025-01-27] MEDS: DOCUSATE SOD 100 MG CAPSULE PO (09:52)
[2025-01-27] MEDS: IBUPROFEN TAB 400 MG TABLET 800 MG PO (09:55)
== END 2025-01-27 12:08 | disposition home or self-care (01) | DRG 807 ==
LOC: S4SX 01-26 09:34 → S4NX 01-26 11:13
PROVIDERS: Admitting Provider Obstetrics & Gynecology; Visit Provider Obstetrics & Gynecology
DX: O48.0 Post-term pregnancy (principal); Z37.0 Single live birth; O70.0 First degree perineal laceration during delivery; Z3A.40 40 weeks gestation of pregnancy
CPT/HCPCS: 36415; 59025; 85025; 86780; 86850; 86900; 86901; J2590; J2795; J3010; J7120; A9270